=== PATIENT | female | born 1965 | race Caucasian/White ===

== ENCOUNTER 2020-04-29 09:29 | Outpatient (REF) | payer MEDICARE, MEDICAID, SELFPAY | END 2020-04-29 09:30 | disposition home or self-care (01) | LOC: HO.LAB 09:29 | PROVIDERS: Visit Provider Internal Medicine | DX: Z20.828 Contact with and (suspected) exposure to other viral communicable diseases (principal) | CPT/HCPCS: C9803; U0003 ==

== ENCOUNTER → 2020-05-18 09:34 | Outpatient (BNVA) | payer MEDICAID, SELFPAY | PROVIDERS: PCP Internal Medicine; Referring Provider Internal Medicine; Visit Provider Internal Medicine Gastroenterology | DX: Z76.89 Persons encountering health services in other specified circumstances (principal) ==

== ENCOUNTER → 2020-06-08 12:54 | Outpatient (REF) | payer MEDICARE, MEDICAID, SELFPAY ==
--- NOTE | 2020-06-08 13:03 | ECG_ITS ---
Hook-up date: 2020-06-08 13:13:00 Duration: 41:59:00 Test Indications: PALPITATIONS Medications: [id number] QRS complexes 4 Ventricular ectopics which represent <1 % of total QRS comp. 12 Supraventricular ectopics which represent <1 % of total QRS comp. * Paced QRS complexs which represent % of total QRS comp. VENTRICULAR ECTOPY 2 Isolated 0 Bigeminal Cycles 1 Couplets 0 Runs 0 Beats in Runs * Beats LONGEST at * BPM at :: -- * Beats FASTEST at * BPM at :: -- SUPRAVENTRICULAR ECTOPY 7 Isolated 0 Couplets 1 Runs 5 Beats in Runs 5 Beats LONGEST at 158 BPM at 05:54:53 2020-06-09 5 Beats FASTEST at 158 BPM at 05:54:53 2020-06-09 HEART RATES 56 MIN at 03:27:10 2020-06-09 82 AVG 138 MAX at 07:44:41 2020-06-09 LONGEST RR 1.0880 secs at 03:27:35 2020-06-09 S-T LEVELS Channel 1 - 128 mm at 13:13:00 2020-06-08 - 128 mm at 13:13:00 2020-06-08 Channel 2 - 128 mm at 13:13:00 2020-06-08 - 128 mm at 13:13:00 2020-06-08 Channel 3 - 128 mm at 03:23:21 -- - 128 mm at 03:23:21 Basic rhythm Normal sinus rhythm No long pause or profound bradycardia Rare ectopics One 5 beat run of SVE c/w PAT at 158 bpm Patient did not report any symptoms in the diary Referred By: Nonstaff Physician Overread By: AMY MOON MD
== END ==
LOC: HO.CARD 12:54
PROVIDERS: PCP Internal Medicine; Visit Provider Nurse Practitioner
DX: R00.2 Palpitations (principal)
CPT/HCPCS: 93225; 93226; C9803; U0003

== ENCOUNTER 2020-06-08 15:48 | Outpatient (REF) | payer MEDICARE, MEDICAID, SELFPAY | END 2020-06-08 15:49 | disposition home or self-care (01) | LOC: HO.LAB 15:48 | PROVIDERS: PCP Internal Medicine; Visit Provider Internal Medicine | DX: Z20.828 Contact with and (suspected) exposure to other viral communicable diseases (principal) | CPT/HCPCS: C9803; U0003 ==

== ENCOUNTER 2020-06-10 13:57 | Outpatient (REF) | payer MEDICARE, MEDICAID, SELFPAY ==
--- NOTE | 2020-06-10 | MM_ITS ---
EXAMINATION: MM DIAGNOSTIC DIGITAL BREAST TOMOSYNTHESIS, BILATERAL US DIAGNOSTIC ULTRASOUND BREAST, BILATERAL CLINICAL INFORMATION: Bilateral periareolar/retroareolar breast pain for several days. No palpable mass or discharge. Family history breast cancer, mother. The lifetime risk of breast cancer based on the Tyrer-Cuzick Model is 15%. COMPARISON: Mammography: 09/18/2018, 02/24/2015 TECHNIQUE: Digital breast tomosynthesis is performed in both the craniocaudal and mediolateral oblique views along with computer-aided detection (CAD). Synthesized 2D images are generated from the tomosynthesis. Ultrasound of each breast is performed using grayscale imaging and color Doppler without and with harmonics. Exam is targeted to the areas of clinical concern as noted by the patient including retroareolar and periareolar regions. FINDINGS: There are scattered areas of fibroglandular density (ACR BI-RADS breast composition Category b). There are no significant masses, abnormal calcifications, or other abnormalities. Parenchymal pattern is similar to prior studies. There is no developing density. No skin thickening or coarsening of the Logan's ligaments. The axilla and skin contours are unremarkable. No significant changes. Bilateral targeted breast ultrasound demonstrates no cystic or solid mass, architectural abnormality, or focal duct ectasia. There is no skin thickening or edema tracking in the soft tissue planes. No hyperemia. Results are discussed with the patient at time of visit. MM/MM tomosynthesis diagnostic BI IMPRESSION: 1. No mammographic evidence of malignancy or inflammatory changes. 2. Unremarkable bilateral diagnostic breast ultrasound.. ASSESSMENT: BI-RADS 1: Negative RECOMMENDATION: 1. Patient's bilateral breast pain should be managed based on the clinical impression. 2. Otherwise, routine annual screening mammography. This patient's information was entered into a reminder system with a target due date for their next mammogram.
== END 2020-06-10 13:58 | disposition home or self-care (01) ==
LOC: HO.MAMMO 13:57
PROVIDERS: PCP Internal Medicine; Visit Provider Internal Medicine
DX: N64.4 Mastodynia (principal)
CPT/HCPCS: 76642; 77062; 77066

== ENCOUNTER 2020-07-03 12:54 | Outpatient (REF) | payer MEDICARE, MEDICAID, SELFPAY | END 2020-07-03 12:55 | disposition home or self-care (01) | LOC: HO.LAB 12:54 | PROVIDERS: Visit Provider Internal Medicine | DX: Z20.822 Contact with and (suspected) exposure to COVID-19 (principal) | CPT/HCPCS: 36415; C9803; U0003 ==

== ENCOUNTER → 2021-01-13 08:04 | Outpatient (REF) | payer MEDICARE, MEDICAID, SELFPAY ==
--- NOTE | ~2021-01-13 | NM_ITS ---
EXAMINATION: RADIONUCLIDE SOLID FOOD GASTRIC EMPTYING 4-HOUR STUDY CLINICAL INFORMATION: Diabetes and abdominal pain. COMPARISON: No previous gastric emptying study is available for comparison. TECHNIQUE: A standard meal consisting of 4 oz of Egg Beat[employer] brand tagged with 890 microcuries Tc-99m Sulfur Colloid, 8 oz water and 2 slices of toast with jelly was administered orally to the patient. Images were obtained using a dual head gamma camera in the anterior and posterior projections over of the stomach immediately post ingestion and at hourly intervals up to 3 hours post ingestion. Images were not obtained at 4 hours due to the minimal retention at 3 hours. The anterior and posterior counts at each time interval were averaged using the geometric mean and expressed as percentage of the immediate post ingestion counts. FINDINGS: There is good visualization of activity in the stomach immediately post ingestion. As the study progresses, there is good clearance of activity from the stomach and visualization of progressively increasing small bowel activity. By the end of the study, there is almost no retention noted in the stomach. Retention in the stomach at each time interval was: 1 hour 39% (normal 37%-90%) 2 hours 14% (normal 30%-60%) 3 hours 3% 4 hours (Not Obtained) (normal 0%-10%) NM/NM gastric emptying study IMPRESSION: Normal solid food gastric emptying study.
== END ==
LOC: HO.NUCMED 08:04
PROVIDERS: Visit Provider Internal Medicine
DX: R10.84 Generalized abdominal pain (principal); E11.65 Type 2 diabetes mellitus with hyperglycemia
CPT/HCPCS: 78264; A9541

== ENCOUNTER 2021-07-15 10:02 | Outpatient (REF) | payer MEDICARE, MEDICAID, SELFPAY ==
[2021-07-15 11:13] LABS: MANUAL DIFF FLAG NO
[2021-07-15 11:37] LABS: Basophils Percent Auto 0.5 % (0-2); Eosinophils Absolute Auto 0.1 X10*3/uL (0.0-0.4); Eosinophils Percent Auto 0.8 % (0-4); Hematocrit 39.9 % (37.0-47.0); Hemoglobin 13.4 g/dl (12.0-16.0); Imm Gran Abs Auto 0.02 X10*3/uL (0.00-0.03); Imm Gran Pct Auto 0.3 % (0.0-0.4); Lymphocytes Absolute Auto 1.9 X10*3/uL (1.2-4.9); Lymphocytes Percent Auto 31.6 % (20-40); Mean Corpuscular HGB Conc 33.6 g/dl (31.0-35.0); Mean Corpuscular Hemoglobin 28.5 pg (27.0-33.0); Mean Corpuscular Volume 84.7 fL (80.0-98.0); Mean Platelet Volume 11.4 fL (9.4-12.3); Monocytes Absolute Auto 0.5 X10*3/uL (0.1-1.2); Neutrophils Absolute Auto 3.5 x10*3/uL (2.0-8.3); Neutrophils Percent Auto 57.8 % (45-73); Platelet Count 250 X10*3/uL (160-400); Red Blood Count 4.71 X10*6/uL (4.20-5.50); Red Cell Distribution Width 11.9 % (11.0-16.0)
[2021-07-15 12:12] LABS: Alanine Aminotransferase 13 U/L (0-31); Albumin Level 4.2 g/dL (3.5-5.0); Alkaline Phosphatase 88 U/L (39-117); Anion Gap 11 (12-20); Aspartate Amino Transferase 12 U/L (5-31); Bilirubin Total 0.6 mg/dL (0.0-1.0); Blood Urea Nitrogen 19 mg/dL (9-16); Calcium 10.1 mg/dL (8.4-10.2); Carbon Dioxide 31 mmol/L (22-29); Chloride 101 mmol/L (96-108); Estimated Glomerular Filt Rate > 60; Glucose Random 302 mg/dL (60-115); Potassium 3.2 mmol/L (3.3-5.1); Sodium 140 mmol/L (135-145); Total Protein 7.6 g/dL (6.5-8.0)
[2021-07-20 12:42] LABS: HCV Log PCR <1.18 log IU/mL; HepC Viral Load <15 IU/mL
== END 2021-07-15 10:03 | disposition home or self-care (01) ==
LOC: HO.LAB 10:02
PROVIDERS: PCP Internal Medicine; Referring Provider Internal Medicine; Visit Provider Nurse Practitioner
DX: Z01.818 Encounter for other preprocedural examination (principal); R10.9 Unspecified abdominal pain; G89.29 Other chronic pain; R76.8 Other specified abnormal immunological findings in serum; F32.A Depression, unspecified
CPT/HCPCS: 36415; 80053; 85025; 87522; 99212

== ENCOUNTER 2021-08-16 09:50 | Outpatient (REF) | payer MEDICARE, MEDICAID, SELFPAY ==
--- NOTE | ~2021-08-16 | MM_ITS ---
EXAMINATION: MM SCREENING DIGITAL BREAST TOMOSYNTHESIS, BILATERAL CLINICAL INFORMATION: Screening. Asymptomatic. The lifetime risk of breast cancer based on the Tyrer-Cuzick Model is 15%. COMPARISON: Mammography: 06/10/2020, 09/18/2018, 02/24/2015, bilateral ultrasound 06/10/2020 TECHNIQUE: Digital breast tomosynthesis is performed in both the craniocaudal and mediolateral oblique views along with computer-aided detection (CAD). Synthesized 2D images are generated from the tomosynthesis. FINDINGS: There are scattered areas of fibroglandular density (ACR BI-RADS breast composition Category b). There are no significant masses, abnormal calcifications, or other abnormalities. Parenchymal pattern is similar to prior studies. There are no significant changes. MM/MM tomosynthesis screening BI IMPRESSION: No mammographic evidence of malignancy. ASSESSMENT: BI-RADS 1: Negative RECOMMENDATION: Routine annual mammography screening. This patient's information was entered into a reminder system with a target due date for their next mammogram.
== END 2021-08-16 09:51 | disposition home or self-care (01) ==
LOC: HO.MAMMO 09:50
PROVIDERS: PCP Internal Medicine; Visit Provider Internal Medicine
DX: Z12.31 Encounter for screening mammogram for malignant neoplasm of breast (principal)
CPT/HCPCS: 77063; 77067

== ENCOUNTER 2021-10-15 08:23 | Outpatient (REF) | payer MEDICARE, MEDICAID, SELFPAY ==
--- NOTE | ~2021-10-15 | XR_ITS ---
EXAMINATION: XR LUMBOSACRAL SPINE WITH OBLIQUES CLINICAL INFORMATION: Radiculopathy. Left-sided sciatica. COMPARISON: Lumbar spine x-rays December 30, [address] abdomen pelvis September 04, 2019 TECHNIQUE: 5 views of the lumbar spine were obtained. FINDINGS: 5 nonrib-bearing lumbar vertebral bodies are visualized. Alignment is within normal limits. Lumbar vertebral body heights are maintained. Moderate narrowing of the L4/5 disc space height with severe narrowing of the L5/S1 disc space height. Small osteophytes are scattered throughout the lumbar spine. There are minimal degenerative changes of the posterior elements of the lower lumbar spine. Sacroiliac joints are symmetric. Surgical clips in the right upper abdomen consistent with prior cholecystectomy. XR/XR lumbar spine 4V min IMPRESSION: Moderate degenerative changes of the lower lumbar spine. No compression deformity.
== END 2021-10-15 08:24 | disposition home or self-care (01) ==
LOC: HO.XRAY 08:23
PROVIDERS: PCP Internal Medicine; Visit Provider Internal Medicine
DX: M54.16 Radiculopathy, lumbar region (principal); M54.32 Sciatica, left side
CPT/HCPCS: 72110

== ENCOUNTER 2021-12-09 08:53 | Outpatient (REF) | payer MEDICARE, MEDICAID, SELFPAY ==
--- NOTE | ~2021-12-09 | XR_ITS ---
EXAMINATION: XR BILATERAL HIPS CLINICAL INFORMATION: Pain COMPARISON: CT abdomen and pelvis 09/04/2019 TECHNIQUE: Each hip is imaged in AP and frog-lateral projections. There are total of 4 views. FINDINGS: Normal bony mineralization. No destructive process, fracture, or dislocation. Both hips show no focal joint narrowing and no subchondral sclerosis or erosive change or chondrocalcinosis. There is small corticated ossicle at superior aspect of left and right greater trochanter, similar to coronal CT images 2019. The visualized SI joints and pubis are unremarkable. XR/XR hips ALEXX min 3V IMPRESSION: Normal bilateral hips.
--- NOTE | ~2021-12-09 | XR_ITS ---
EXAMINATION: XR LUMBOSACRAL SPINE CLINICAL INFORMATION: Pain COMPARISON: Lumbar radiographs 10/15/2021 TECHNIQUE: Three views of the lumbosacral spine. FINDINGS: Normal segmentation with 5 nonrib-bearing lumbar vertebrae of normal height and normal lumbar lordosis. No lumbar vertebral compression, spondylolisthesis, destructive process. There are multilevel disc changes greatest at L4-L5 and L5-S1 with disc narrowing and endplate sclerosis and vertebral spurring. There is also mild disc narrowing and vertebral spurring at the other levels. Mild facet degeneration suggested L4-S1. The SI joints and visualized sacrum are unremarkable. XR/XR lumbar spine 2-3V IMPRESSION: -Multilevel degenerative disc changes, greatest L4 on L5. -No lumbar vertebral compression, spondylolisthesis, or destructive process.
--- NOTE | ~2021-12-09 | XR_ITS ---
EXAMINATION: BILATERAL KNEE. CLINICAL INFORMATION: Pain. COMPARISON: None TECHNIQUE: 4 views each knee. FINDINGS: Left knee: There is mild reduction in the patellofemoral and medial compartment left knee no visible acute fracture, dislocation or subluxation seen. No abnormal joint effusion. No bony erosive changes. Mild anterior superior patellar enthesophyte is seen. No acute fracture or dislocation seen. Right knee: There is mild loss of medial and patellofemoral compartment joint space with superior patellar spurring.. No visible acute fracture, dislocation or subluxation seen. No lytic process. No abnormal joint effusion. XR/XR knee LT 4V IMPRESSION: Degenerative changes medial and patellofemoral compartment both knees without any visible acute fracture, loose bodies or joint effusion. There is anterior superior patellar enthesophytes bilaterally.
--- NOTE | ~2021-12-09 | XR_ITS ---
EXAMINATION: BILATERAL KNEE. CLINICAL INFORMATION: Pain. COMPARISON: None TECHNIQUE: 4 views each knee. FINDINGS: Left knee: There is mild reduction in the patellofemoral and medial compartment left knee no visible acute fracture, dislocation or subluxation seen. No abnormal joint effusion. No bony erosive changes. Mild anterior superior patellar enthesophyte is seen. No acute fracture or dislocation seen. Right knee: There is mild loss of medial and patellofemoral compartment joint space with superior patellar spurring.. No visible acute fracture, dislocation or subluxation seen. No lytic process. No abnormal joint effusion. XR/XR knee RT 4V IMPRESSION: Degenerative changes medial and patellofemoral compartment both knees without any visible acute fracture, loose bodies or joint effusion. There is anterior superior patellar enthesophytes bilaterally.
== END 2021-12-09 08:54 | disposition home or self-care (01) ==
LOC: HO.XRAY 08:53
PROVIDERS: PCP Internal Medicine; Visit Provider Internal Medicine
DX: M25.551 Pain in right hip (principal); M25.552 Pain in left hip; M25.561 Pain in right knee; M25.562 Pain in left knee; M54.16 Radiculopathy, lumbar region; M54.32 Sciatica, left side
CPT/HCPCS: 72100; 73522; 73564

== ENCOUNTER → 2021-12-10 13:07 | Outpatient (BNVA) | payer MEDICARE, MEDICAID, SELFPAY | PROVIDERS: PCP Internal Medicine; Referring Provider Internal Medicine; Visit Provider Nurse Practitioner | DX: K59.04 Chronic idiopathic constipation (principal) | CPT/HCPCS: 99212 ==

== ENCOUNTER 2022-01-12 16:25 | Outpatient (REF) | payer MEDICARE, MEDICAID, SELFPAY ==
--- NOTE | ~2022-01-12 | MR_ITS ---
EXAMINATION: MR PELVIS WITHOUT AND WITH CONTRAST CLINICAL INFORMATION: Lower back and left hip pain. Sacroiliitis. Left-sided sciatica. COMPARISON: Lumbar spine and hip radiograph dated 12/09/2021. CT abdomen/pelvis dated 09/04/2019. TECHNIQUE: Multisequence MR imaging of the pelvis was obtained before and after the IV administration of 4.5 mL Gadavist contrast on a high-field strength scanner. FINDINGS: BONE: No stress reaction or fracture. No evidence of acute osseous injury. No marrow edema. No post-contrast marrow enhancement. Unremarkable sacroiliac joints without joint space narrowing, marginal osteophytes, periarticular erosions, or edema. MUSCLES/TENDONS: Moderate right-sided gluteus minimus tendinosis. No measurable tendon tear or tendon retraction. The remaining muscles and tendons are grossly intact. INTRAPELVIC STRUCTURES: Unremarkable. SOFT TISSUES: No abnormal soft tissue mass or fluid collection. No significant soft tissue mass or mass effect in the region of the neurovascular bundles. No associated edema. MR/MR pelvis wo/w con IMPRESSION: 1. Unremarkable sacroiliac joints. No evidence of sacroiliitis. 2. No acute osseous injury. No stress reaction, fracture, or avascular necrosis. 3. Moderate right-sided gluteus minimus tendinosis. 4. No soft tissue mass or fluid collection. No mass, mass effect, or edema in the region of the neurovascular bundles.
== END 2022-01-12 16:26 | disposition home or self-care (01) ==
LOC: HO.MRI 16:25
PROVIDERS: Visit Provider Internal Medicine
DX: M25.552 Pain in left hip (principal); M46.1 Sacroiliitis, not elsewhere classified; M54.42 Lumbago with sciatica, left side
CPT/HCPCS: 72197; A9585

== ENCOUNTER → 2022-01-18 12:54 | Outpatient (BNVA) | payer MEDICARE, MEDICAID, SELFPAY | PROVIDERS: PCP Internal Medicine; Referring Provider Internal Medicine; Visit Provider Nurse Practitioner | DX: Z12.11 Encounter for screening for malignant neoplasm of colon (principal); K59.04 Chronic idiopathic constipation; M70.60 Trochanteric bursitis, unspecified hip | CPT/HCPCS: 99212 ==